=== PATIENT | female | born 1990 | race Caucasian/White ===

== ENCOUNTER 2016-10-11 20:16 | Emergency (ER) | payer SELFPAY ==
[2016-06-28 22:01] VITALS: BP 136/72
--- NOTE | 2016-10-11 20:30 | ED Physician Documentation ---
General Adult - HISTORIAN Historian: patient - HPI Stated Complaint: dental pain Chief Complaint: General Adult Onset: days ago (2) Timing: still present Severity: moderate Further Comments: yes (Pt is a 25 yo female with dental pain x 2 days. Pain is in the lower L rear molar. Pt has dentist appointment but it is not for several days. No fever, n/v.) - ROS CONST: no problems EYES/ENT: other (dental pain) CVS/RESP: none GI/: none MS/SKIN/LYMPH: none - PAST HX Past History: none Allergies/Adverse Reactions: Allergies Allergy/AdvReac Type Severity Reaction Status Date / Time No Known Allergies Allergy Verified 10/11/16 20:30 Home Medications: Ambulatory Orders Medication Instructions Recorded NK [NK] 06/28/16 - SOCIAL HX Smoking History: non-smoker - FAMILY HX Family History: No - VITAL SIGNS Vital Signs: Vital Signs Temp Pulse Resp BP Pulse Ox 136/72 06/28/16 22:17 - REVIEWED ASSESSMENTS Nursing Assessment Reviewed: Yes Vitals Reviewed: Yes Progress - Progress Progress: Rx Penicillin VK 500 mg. Take one tablet by mouth every 8 hrs for 10 days. Rx [place] (5/325). Take one or two tablets by mouth every 4 to 6 hrs as needed for moderate to severe pain. Follow up with dentist as soon as possible. General Adult Physical Exam - PHYSICAL EXAM GENERAL APPEARANCE: mild distress EENT: pharynx normal, other (dental pain with small gum abscess, L lower molar) NECK: normal inspection, supple RESPIRATORY: no resp distress CVS: reg rate & rhythm BACK: normal inspection SKIN: warm/dry, normal color EXTREMITIES: non-tender, normal range of motion NEURO: oriented X3 Discharge Clincal Impression: Pain, dental Referrals: Hugo Sheridan [Primary Care Provider] - Home Medications: Ambulatory Orders NK [NK] 06/28/16 Condition: Good Disposition: 01 HOME, SELF-CARE Decision to Admit: NO Decision Time: 20:33
== END 2016-10-11 20:36 | disposition home or self-care (01) ==
LOC: ED 20:16
DX: K02.9 Dental caries, unspecified (principal)
CPT/HCPCS: 99283

== ENCOUNTER 2016-10-23 02:24 | Emergency (ER) | payer SELFPAY ==
[2016-10-23] MEDS ORDERED: KETOROLAC TROMETHAMINE 60 MG/2 ML VIAL ONE (02:31)
[2016-10-23 02:40] VITALS: BP 151/80
[2016-10-23] MEDS ORDERED: KETOROLAC TROMETHAMINE 60 MG/2 ML VIAL IM ONE (02:40)
--- NOTE | 2016-10-23 02:56 | ED Physician Documentation ---
Sore Throat/Dental Pain - HISTORIAN Historian: patient - HPI Stated Complaint: dental pain Chief Complaint: Dental Pain Onset: days ago Further Comments: yes (25 year old female patient presents with complaints of dental pain. Patient was seen in ER on 10/11/2016 for dental pain, prescribed PenVK and [place]. Has not seen ER, does not have appointment until November 16.) - ROS CONST: no problems CVS/RESP: none GI/: denies: nausea, vomiting MS/SKIN/LYMPH: denies: muscle aches, rash, leg swelling, ankle swelling, other NEURO/PSYCH: none - PAST HX Past History: none Other History: none Allergies/Adverse Reactions: Allergies Allergy/AdvReac Type Severity Reaction Status Date / Time No Known Allergies Allergy Verified 10/23/16 02:36 Home Medications: Ambulatory Orders Medication Instructions Recorded NK [NK] 06/28/16 - SOCIAL HX Smoking History: non-smoker - FAMILY HX Family History: No - VITAL SIGNS Vital Signs: Vital Signs Temp Pulse Resp BP Pulse Ox 98.4 F 71 16 151/80 96 10/23/16 02:30 10/23/16 02:30 10/23/16 02:30 10/23/16 02:30 10/23/16 02:30 - REVIEWED ASSESSMENTS Nursing Assessment Reviewed: Yes Vitals Reviewed: Yes ED Results Lab/Radiology - Orders Orders: ED Orders Category Date Time Status Ketorolac Tromethamine [Toradol] Med 10/23/16 02:31 Discontinued 60 mg .ROUTE .STK-MED ONE Ketorolac Tromethamine [Toradol] Med 10/23/16 02:40 Discontinued 60 mg IM NOW ONE Dental Pain Physical Exam - EXAM General Appearance: mild distress Head/Neck: head nml inspection, neck nml inspection Eyes: PERRL Mouth/Throat: lips nml, gums nml, pharynx nml, voice nml, no drooling, no air way problems, no thrush, membranes nml, other (left bottom molar with no erythema, no edema, fillings noted, no fractured tooth present) Skin: normal color, warm/dry, NR, INT, PAL, DR Neuro/Psych: No: weakness Discharge Clincal Impression: Toothache Referrals: Hugo Sheridan [Primary Care Provider] - 2 Days Additional Instructions: See the dentist john Home Medications: Ambulatory Orders NK [NK] 06/28/16 Condition: Stable Disposition: 01 HOME, SELF-CARE Decision to Admit: NO Decision Time: 02:55
== END 2016-10-23 03:00 | disposition home or self-care (01) ==
LOC: ED 02:24
DX: K02.9 Dental caries, unspecified (principal)
CPT/HCPCS: J1885 ×2; 96372; 99283

== ENCOUNTER 2017-01-28 10:40 | Emergency (ER) | payer SELFPAY ==
--- NOTE | 2017-01-28 11:12 | ED Physician Documentation ---
Sore Throat/Dental Pain - HISTORIAN Historian: patient - HPI Stated Complaint: sore throat Chief Complaint: Sore Throat Additional Information: pt w/ sore throat has freq strept and son just got over strept throat. Onset: days ago (3) Associated Symptoms: sore throat, moderate Worsened By: heat, cold Further Comments: yes (has freq strept throats rel w/ amox and usually tests neg for strept) - ROS CONST: no problems CVS/RESP: none NEURO/PSYCH: none - PAST HX Past History: none Allergies/Adverse Reactions: Allergies Allergy/AdvReac Type Severity Reaction Status Date / Time No Known Allergies Allergy Verified 01/28/17 11:03 Home Medications: Ambulatory Orders Medication Instructions Recorded Amoxicillin [Trimox] 500 mg PO QID #40 capsule 01/28/17 - SOCIAL HX Smoking History: non-smoker Alcohol Use: rarely Drug Use: none - FAMILY HX Family History: No - VITAL SIGNS Vital Signs: Vital Signs Temp Pulse Resp BP Pulse Ox 151/80 10/23/16 03:00 - REVIEWED ASSESSMENTS Nursing Assessment Reviewed: Yes Vitals Reviewed: Yes Sore throat Physical Exam - EXAM General Appearance: moderate distress Head/Neck: head nml inspection, trachea midline, cervical lymphadenopathy, anterior. No: no lymphadenopathy Eyes: eyes nml inspection Mouth/Throat: lips nml, gums nml, pharyngeal erythema, tonsillar exudate, tonsillar swelling Ear/Nose: nml inspection Respiratory: no resp. distress, breath sounds nml CVS: reg. rate & rhythm, heart sounds nml Abdomen: soft, non-tender Extremities: non-tender, nml ROM Skin: warm/dry, normal color. No: cyanosis, diaphoresis, jaundice Neuro/Psych: oriented x3 Discharge Clincal Impression: strept throat Prescriptions: Amoxicillin [Trimox] 500 mg PO QID #40 capsule Referrals: Hugo Sheridan [Primary Care Provider] - 2 Days Home Medications: Ambulatory Orders Amoxicillin [Trimox] 500 mg PO QID #40 capsule 01/28/17 Condition: Good Disposition: 01 HOME, SELF-CARE Decision to Admit: NO Decision Time: 11:14
[2017-01-28 11:23] VITALS: BP 144/70
== END 2017-01-28 11:23 | disposition home or self-care (01) ==
LOC: ED 10:40
DX: J02.0 Streptococcal pharyngitis (principal)
CPT/HCPCS: 87070; 87880; 99283

== ENCOUNTER 2017-03-16 04:23 | Emergency (ER) | payer SELFPAY ==
--- NOTE | 2017-03-16 05:10 | ED Physician Documentation ---
Psychological Disorders - HISTORIAN Historian: patient - HPI Stated Complaint: SHAKEY/ANXIOUS Chief Complaint: Psychological Disorder Additional Information: She says when she "gets around people, she feels all shakey, and like she can't breath, and like she has to go outside to get away from people" started today. Onset: hours Duration: sudden onset Intent: denies: suicide, wants to escape, accidental Severity: mild Situational Problems: No Related To: work Further Comments: no - Associated Symptoms Symptoms: other (anxious) - ROS CONST: none NEURO/PSYCH: none. denies: headache EYES/ENT: none. denies: problems with vision CVS/RESP: none. denies: chest pain GI/: denies: nausea, vomiting MS/SKIN/LYMPH: denies: joint pain - PAST HX Psychiatric problems: denies: bipolar disorder DVT/PE Risk Factors: none Lung, Cardiac, DM: denies: A-Fib, diabetes Type 2 Surgical History: no surgical history Immunizations: UTD Allergies/Adverse Reactions: Allergies Allergy/AdvReac Type Severity Reaction Status Date / Time No Known Allergies Allergy Verified 01/28/17 11:03 Home Medications: Ambulatory Orders Medication Instructions Recorded NK [NK] 03/16/17 - Social HX Smoking History: non-smoker Marital Status: single Drug Use: none - Family HX Family HX: denies: mental illness - VITAL SIGNS Vital Signs: Vital Signs Temp Pulse Resp BP Pulse Ox 98.4 F 91 H 18 147/80 98 03/16/17 04:24 03/16/17 04:24 03/16/17 04:24 03/16/17 04:24 03/16/17 04:24 - REVIEWED ASSESSMENTS Nursing Assessment Reviewed: Yes Vitals Reviewed: Yes Psych Physical Exam - Physical Exam General Appearance: mild distress, anxious, other (tearful) ENT: nml ENT inspection, pharynx nml Eyes: EOM's intact Mental Status: tearful Orientation: nml x3 Cranial Nerves: CN's intact as tested Sensory, Motor: nml motor response, nml sensory response Neck/Back: normal inspection, supple. No: carotid bruit Respiratory: no resp distress, breath sounds normal CVS: reg rate & rhythm, heart sounds normal, equal pulses Abdomen: non-tender Skin: warm/dry, normal color Extremities: non-tender, normal range of motion, no evidence of injury Discharge Clincal Impression: Anxiety attack, Panic attack as reaction to stress Referrals: Hugo Sheridan [Primary Care Provider] - 2 Days Condition: Stable Disposition: 01 HOME, SELF-CARE Decision to Admit: NO Date of Decison to Admit: 03/16/17 Decision Time: 05:13
[2017-03-16 05:29] VITALS: BP 144/82
== END 2017-03-16 05:15 | disposition home or self-care (01) ==
LOC: ED 04:23
DX: F41.0 Panic disorder [episodic paroxysmal anxiety] (principal); F43.0 Acute stress reaction
CPT/HCPCS: 99283

== ENCOUNTER 2017-05-05 12:06 | Emergency (ER) | payer OTHER ==
[2017-05-05 12:21] VITALS: BP 128/85
--- NOTE | 2017-05-05 12:49 | ED Physician Documentation ---
Upper Respiratory Symptoms - HISTORIAN Historian: patient - HPI Stated Complaint: cough, congestion Chief Complaint: Cough/ Upper Respiratory Additional Information: cough congestion nasal stuffiness onset 2 d ago-cough occ prod greenish mucoid Duration: intermittent episodes Context: other (son had similar but lesser). denies: recent foreign travel Severity: moderate Associated Symptoms: chills, runny nose, productive cough. denies: fever, sinus pain, sore throat, hoarseness, allergy, headache Worsened by Deep Breath: Yes - ROS CONST/EYES: weakness (sl;ight-more lethargy) CVS/RESP: denies: chest pain, shortness of breath, palpitations LYMPH: denies: leg swelling, rash, swollen glands, ankle swelling GI/: none - PAST HX Lung Disease: none Surgeries/Procedures: none (ear tubes as young child) Immunizations: denies: influenza Allergies/Adverse Reactions: Allergies Allergy/AdvReac Type Severity Reaction Status Date / Time No Known Allergies Allergy Verified 05/05/17 12:21 Home Medications: Ambulatory Orders Medication Instructions Recorded NK [NK] 03/16/17 - SOCIAL HX Smoking History: other (occc 1-2 cigs most days= no) Alcohol Use: none Drug Use: none - FAMILY HX Family History: no significant history - VITAL SIGNS Vital Signs: Vital Signs Temp Pulse Resp BP Pulse Ox 97.7 F 85 20 128/85 99 05/05/17 12:16 05/05/17 12:16 05/05/17 12:16 05/05/17 12:16 05/05/17 12:16 - REVIEWED ASSESSMENTS Nursing Assessment Reviewed: Yes Vitals Reviewed: Yes Upper Respiratory Symptoms - EXAM General Appearance: moderate distress EENT: eyes nml inspection Neck: supple. No: normal inspection (boggy erythema) Respiratory: no resp. distress, breath sounds nml Abdomen: non-tender CVS: reg rate & rhythm, heart sounds normal Skin: color nml, no rash, warm,dry. No: cyanosis, diaphoresis, pallor Extremities: non-tender, normal range of motion Neuro/Psych: oriented x3, mood/affect nml Discharge Clincal Impression: viral resp illness Referrals: Hugo Sheridan [Primary Care Provider] - 2 Days Comments: home rest tessalon bal nut vits claritin-no work for 1-2 days. 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
== END 2017-05-05 12:50 | disposition home or self-care (01) ==
LOC: ED 12:06
DX: J98.8 Other specified respiratory disorders (principal)
CPT/HCPCS: 99283

== ENCOUNTER 2017-12-30 12:29 | Emergency (ER) | payer SELFPAY ==
--- NOTE | 2017-12-30 13:21 | ED Physician Documentation ---
General Adult - HISTORIAN Historian: patient - HPI Stated Complaint: sore throat Chief Complaint: General Adult Onset: hours Timing: still present Severity: moderate Further Comments: yes (Pt is a 27 yo female with a sore throat since yesterday. Pt has difficulty swallowing. No fever, n/v.) - ROS CONST: no problems EYES/ENT: sore throat, other (tonsillar swelling) CVS/RESP: none GI/: none MS/SKIN/LYMPH: none - PAST HX Past History: none Allergies/Adverse Reactions: Allergies Allergy/AdvReac Type Severity Reaction Status Date / Time No Known Allergies Allergy Verified 12/30/17 12:45 Home Medications: Ambulatory Orders Medication Instructions Recorded NK [NK] 03/16/17 - SOCIAL HX Smoking History: less than 1 pack/day - FAMILY HX Family History: No - VITAL SIGNS Vital Signs: Vital Signs Temp Pulse Resp BP Pulse Ox 98.4 F 88 20 129/94 12/30/17 12:40 12/30/17 12:40 12/30/17 12:40 12/30/17 12:40 - REVIEWED ASSESSMENTS Nursing Assessment Reviewed: Yes Vitals Reviewed: Yes Progress - Progress Progress: Rocephin 1 gm IM in ER Rx Z-lauro. Take as directed on package. Rx Prednisone 50 mg. Take one daily for 5 days. Rapid strep neg. Throat cx pending. ED Results Lab/Radiology - Orders Orders: ED Orders Category Date Time Status THROAT CULTURE Stat Lab 12/30/17 Ordered cefTRIAXone SODIUM [Rocephin] Med 12/30/17 14:00 Ordered 1 gm IM QD General Adult Physical Exam - PHYSICAL EXAM GENERAL APPEARANCE: mild distress EENT: pharyngeal erythema (tonsillar swelling) NECK: lymphadenopathy RESPIRATORY: no resp distress, chest non-tender, breath sounds normal CVS: reg rate & rhythm, heart sounds normal BACK: normal inspection SKIN: warm/dry, normal color EXTREMITIES: non-tender, normal range of motion, no evidence of injury, no edema NEURO: oriented X3, motor nml, sensation nml Discharge Clincal Impression: Pharyngitis Qualifiers: Pharyngitis/tonsillitis etiology: unspecified etiology Qualified Code(s): J02.9 - Acute pharyngitis, unspecified Referrals: Hugo Sheridan [Primary Care Provider] - Condition: Good Disposition: 01 HOME, SELF-CARE Decision to Admit: NO Decision Time: 13:45
[2017-12-30] MEDS ORDERED: cefTRIAXone SODIUM 1 GM VIAL ONE (13:33)
[2017-12-30 13:52] VITALS: BP 137/80
[2017-12-30] MEDS ORDERED: cefTRIAXone SODIUM 1 GM VIAL IM SCH (14:00)
== END 2017-12-30 13:43 | disposition home or self-care (01) ==
LOC: ED 12:29
DX: J02.9 Acute pharyngitis, unspecified (principal)
CPT/HCPCS: 87070; 87880; J0696; 96372; 99283

== ENCOUNTER 2018-02-25 09:34 | Emergency (ER) | payer SELFPAY ==
[2018-02-25 09:50] VITALS: BP 127/87
--- NOTE | 2018-02-25 09:58 | ED Physician Documentation ---
General Adult - HISTORIAN Historian: patient - HPI Stated Complaint: cough, congestion Chief Complaint: General Adult Onset: days ago (1) Timing: still present Severity: moderate Further Comments: yes (Pt is a 27 yo female with cough/wheezing x 2 days. No previous hx asthma. No fever, n/v. Pt's 7 yo son is also ill.) - ROS CONST: no problems EYES/ENT: none CVS/RESP: cough (wheezing) GI/: none MS/SKIN/LYMPH: none - PAST HX Past History: none Allergies/Adverse Reactions: Allergies Allergy/AdvReac Type Severity Reaction Status Date / Time No Known Allergies Allergy Verified 02/25/18 09:51 Home Medications: Ambulatory Orders Medication Instructions Recorded NK 03/16/17 - SOCIAL HX Smoking History: cigarettes - FAMILY HX Family History: No - VITAL SIGNS Vital Signs: Vital Signs Temp Pulse Resp BP Pulse Ox 97.5 F L 98 H 22 127/87 93 02/25/18 09:47 02/25/18 09:47 02/25/18 09:47 02/25/18 09:47 02/25/18 09:47 - REVIEWED ASSESSMENTS Nursing Assessment Reviewed: Yes Vitals Reviewed: Yes Progress - Progress Progress: Duoneb HFN in ER. Rx Z-lauro. Use as directed. Rx Albuterol (90 mcg/spray). 2 puffs q 4-6 hrs prn. - EKG/XRAY/CT XRAY: chest (NO ACTIVE DISEASE.) General Adult Physical Exam - PHYSICAL EXAM GENERAL APPEARANCE: mild distress EENT: ENT inspection normal, pharynx normal NECK: normal inspection, supple RESPIRATORY: wheezes CVS: reg rate & rhythm, heart sounds normal BACK: normal inspection, no CVA tenderness SKIN: warm/dry, normal color EXTREMITIES: non-tender, normal range of motion, no evidence of injury, no edema NEURO: oriented X3, motor nml, sensation nml Discharge Clincal Impression: cough, wheezing Referrals: Hugo Sheridan [Primary Care Provider] - Condition: Stable Disposition: 01 HOME, SELF-CARE Decision to Admit: NO Decision Time: 11:11
[2018-02-25] MEDS ORDERED: IPRATROPIUM/ALBUTEROL SULFATE 3 ML AMPUL.NEB NEB ONE (10:06)
--- NOTE | 2018-02-25 11:30 | Diagnostic Imaging Report ---
ROZ BLAIR [facility] [address] [facility] [address] [place] [id number] Report Submission Date: Feb 25, 2018 10:48:16 AM CDT Patient Study Name: FREDDY ELLIS Date: Feb 25, 2018 10:20:48 AM CDT Modality Type: DX Gender: F Description: CHEST : 89 Institution: [facility] Physician: ROZ BLAIR PA AND LATERAL CHEST HISTORY: Cough COMPARISON: None PA and Lateral Chest dated February 25, 2018 demonstrates a normal cardiomediastinal silhouette. Pulmonary vascularity is normal. Lungs are clear. IMPRESSION: NO ACTIVE DISEASE. Electronically signed on Feb 25, 2018 10:48:16 AM CDT by: Bailey PERAZA
== END 2018-02-25 11:13 | disposition home or self-care (01) ==
LOC: ED 09:34
DX: R05 Cough (principal); R06.2 Wheezing
CPT/HCPCS: 71046; 94640; 99283

== ENCOUNTER 2018-04-15 11:20 | Emergency (ER) | payer SELFPAY ==
--- NOTE | 2018-04-15 11:26 | ED Physician Documentation ---
Sore Throat/Dental Pain - HISTORIAN Historian: patient - HPI Stated Complaint: sore throat, eye complaint, ear pain Chief Complaint: Sore Throat Onset: days ago (2) Context: Possible Infection Associated Symptoms: sore throat, moderate, L ear pain, cough, other (eye matting and itching ). denies: fever, chills Worsened By: nothing Further Comments: yes (she reports her son was sick with what she believed to be a cold a few days ago. She has started two days ago with sore throat, ear pain and eye matting and discharge. No fever that she is aware of at this time. She has not taken any OTC meds at this time) - ROS CONST: eye redness, eye itching CVS/RESP: denies: shortness of breath GI/: denies: nausea, vomiting NEURO/PSYCH: headache (sinus ) - PAST HX Past History: none Other History: none Immunizations: UTD Allergies/Adverse Reactions: Allergies Allergy/AdvReac Type Severity Reaction Status Date / Time No Known Allergies Allergy Verified 04/15/18 11:37 Home Medications: Ambulatory Orders Medication Instructions Recorded NK 03/16/17 - SOCIAL HX Smoking History: cigarettes Alcohol Use: none Drug Use: none - FAMILY HX Family History: No - VITAL SIGNS Vital Signs: Vital Signs Temp Pulse Resp BP Pulse Ox 97.9 F 77 19 150/76 97 04/15/18 11:56 04/15/18 11:56 04/15/18 11:56 04/15/18 11:56 04/15/18 11:56 - REVIEWED ASSESSMENTS Nursing Assessment Reviewed: Yes Vitals Reviewed: Yes ED Results Lab/Radiology - Orders Orders: ED Orders Category Date Time Status GRP A STREP SCREEN Stat Lab 04/15/18 Ordered Sore throat Physical Exam - EXAM General Appearance: no acute distress, alert Head/Neck: head nml inspection, pain over sinuses (left frontal and maxillary ), maxillary swelling (L) Eyes: conjunctivae red Mouth/Throat: lips nml, gums nml, no drooling, no air way problems, pharyngeal erythema, tonsillar swelling Ear/Nose: nml inspection, TM erythema (left ear ) Respiratory: no resp. distress, breath sounds nml, respiratory distress CVS: reg. rate & rhythm, heart sounds nml Abdomen: soft, no distension Extremities: non-tender Skin: warm/dry, normal color Neuro/Psych: oriented x3, mood/affect nml Discharge Clincal Impression: Strep throat Referrals: Hugo Sheridan [Primary Care Provider] - 2 Days Additional Instructions: 1. Amoxicillin 500 mg take 1 by mouth three times per day 2. Warm tea with honey 3. Increase fluids 4. Tylenol or Ibuprofen as directed for pain or fever 5. Gentamycin use 1 drop in affected eye three times per day 6. See PCP in 2-4 days 7. Return to ER for concerns Condition: Stable Disposition: 01 HOME, SELF-CARE Decision to Admit: NO Date of Decison to Admit: 04/15/18 Decision Time: 11:48
[2018-04-15 11:41] VITALS: BP 150/76
== END 2018-04-15 11:56 | disposition home or self-care (01) ==
LOC: ED 11:20
DX: J02.9 Acute pharyngitis, unspecified (principal)
CPT/HCPCS: 87880; 99283

== ENCOUNTER 2019-03-23 18:12 | Emergency (ER) | payer SELFPAY ==
--- NOTE | 2019-03-23 18:32 | ED Physician Documentation ---
Abscess - HISTORIAN Historian: patient - HPI Chief Complaint: Abscess (Bumps under Left Axillary) Additional Information: Patient is a 28 year old female who presents to the ER with c/o small bumps under the left axilla x 1 month. Possibly due to shaving- several areas that are small, red, erythemic- no head noted. Patient denies any fever or chills. Onset: days ago (1 month) Timing: still present Duration: persistent since Location: L axillary Quality: painful Identified Cause?: No (Possibly d/t shaving) When Did Symptoms Start: 02/21/19 Where: home Context: Medication Exposure: none Context: Food Exposure: none Context: Other Exposure: other (ingrown hair) - ROS CONST: none CVS/RESP: none EYES/ENT: none GI/: none MS/SKIN/LYMPH: none NEURO/PSYCH: none - PAST HX Past History: none Other History: none Surgeries/Procedures: No Immunizations: UTD Allergies/Adverse Reactions: Allergies Allergy/AdvReac Type Severity Reaction Status Date / Time No Known Allergies Allergy Verified 03/23/19 18:25 Home Medications: Ambulatory Orders Medication Instructions Recorded NK 03/23/19 - SOCIAL HX Smoking History: cigarettes, less than 1 pack/day Alcohol Use: rarely Drug Use: none - FAMILY HX Family History: none - VITAL SIGNS Vital Signs: Vital Signs Temp Pulse Resp BP Pulse Ox 145/88 01/07/19 12:40 - REVIEWED ASSESSMENTS Nursing Assessment Reviewed: Yes Vitals Reviewed: Yes ED Results Lab/Radiology - Orders Orders: ED Orders Category Date Time Status Sulfamethoxazole/Trimethoprim [Bactrim Ds] Med 03/23/19 18:28 Once 1 each PO NOW ONE Abscess Physical Exam - EXAM General Appearance: no acute distress, alert Skin: warm,dry, other (redness/erythema-barely raised; possibly due from shaving) Location: extremities Character: erythematous Symptoms: warmth, tenderness, swelling (mild swelling) Extremities: nml ROM EENT: eyes nml inspection, pharynx nml Respiratory: breath sounds normal CVS: heart sounds nml Neuro/Psych: oriented x3, CN's nml as tested, motor nml, sensation nml, mood/affect nml Discharge Clincal Impression: Folliculitis Referrals: Primary Doctor,No [Primary Care Provider] - 2 Days Additional Instructions: Take Bactrim twice a day for 10 days No shaving (wax or use hair remover) Use warm moist heat Alternate Tylenol and Ibuprofen as needed for discomfort Follow up with PCP in 1-2 weeks for re-evaluation Condition: Good Disposition: 01 HOME, SELF-CARE Decision to Admit: NO Decision Time: 18:32
[2019-03-23 18:34] VITALS: BP 140/75
[2019-03-23] MEDS: SULFAMETHOXAZOLE/TRIMETHOPRIM 800/160MG TAB PO ONE (18:34)
== END 2019-03-23 18:37 | disposition home or self-care (01) ==
LOC: ED 18:12
DX: L66.2 Folliculitis decalvans (principal)
CPT/HCPCS: 99283; 99284; A9270

== ENCOUNTER 2019-03-30 20:02 | Emergency (ER) | payer SELFPAY ==
--- NOTE | 2019-03-30 20:38 | ED Physician Documentation ---
General Adult - HISTORIAN Historian: patient - HPI Stated Complaint: pain under left arm Chief Complaint: General Adult Additional Information: Patient presents to ED with pain under left arm. Patient was seen a week ago for folliculitis left axilla. Patient was given Bactrim, however, she states it is causing nausea and she cannot tolerate it so she has not been taking it. Onset: days ago (7) Timing: still present Severity: mild - ROS CONST: no problems EYES/ENT: none CVS/RESP: none GI/: nausea MS/SKIN/LYMPH: none NEURO/PSYCH: denies: headache - PAST HX Past History: none Other History: none Allergies/Adverse Reactions: Allergies Allergy/AdvReac Type Severity Reaction Status Date / Time No Known Allergies Allergy Verified 03/30/19 21:20 Home Medications: Ambulatory Orders Medication Instructions Recorded Sulfamethoxazole/Trimethoprim 1 each PO BID #20 tab 03/23/19 [Bactrim Ds] Cephalexin [Keflex] 500 mg PO Q8 #30 capsule 03/30/19 Ondansetron HCl Rapdis [Zofran Odt] 4 mg PO Q8 PRN #30 tab 03/30/19 - SOCIAL HX Smoking History: non-smoker Alcohol Use: none Drug Use: none - FAMILY HX Family History: No - VITAL SIGNS Vital Signs: Vital Signs Temp Pulse Resp BP Pulse Ox 97.9 F 89 18 125/88 95 03/30/19 20:02 03/30/19 20:02 03/30/19 20:02 03/30/19 20:02 03/30/19 20:02 - REVIEWED ASSESSMENTS Nursing Assessment Reviewed: Yes Vitals Reviewed: Yes General Adult Physical Exam - PHYSICAL EXAM GENERAL APPEARANCE: no distress EENT: CONNIE NECK: normal inspection, supple RESPIRATORY: no resp distress, chest non-tender, breath sounds normal CVS: reg rate & rhythm, heart sounds normal ABDOMEN: soft, normal bowel sounds, non-tender BACK: normal inspection SKIN: warm/dry, other (left axilla with indurated 2 cm area, tender) EXTREMITIES: non-tender NEURO: oriented X3, mood/affect nml Discharge Clincal Impression: Folliculitis Prescriptions: Cephalexin [Keflex] 500 mg PO Q8 #30 capsule Ondansetron HCl Rapdis [Zofran Odt] 4 mg PO Q8 PRN #30 tab PRN Reason: nausea/vomiting Referrals: Primary Doctor,No [Primary Care Provider] - 2 Days Additional Instructions: 1. Stop taking Bactrim 2. Start Keflex tomorrow evening 3. Take Zofran every 8 hours as needed for nausea 4. Applying Tea tree oil to affected areas every day may be beneficial to prevent future issues 5. Apply Prid or Black and White ointment to affected area every 8 hours until resolution. This is found over the counter at the pharmacy. A pharmacist can help you find it. 6. Follow up with PCP within 1 week 7. Return to ER for new or worsening symptoms Condition: Stable Disposition: 01 HOME, SELF-CARE Decision to Admit: NO Date of Decison to Admit: 03/30/19 Decision Time: 20:45
[2019-03-30] MEDS: Lidocaine 1% 5ml 10 MG/ML VIAL IJ ONE (20:40)
[2019-03-30] MEDS: cefTRIAXone SODIUM 1 GM in Lidocaine 1% 5ml 2.1 ML IM ONE (20:40)
[2019-03-30 21:19] VITALS: BP 132/88
== END 2019-03-30 21:19 | disposition home or self-care (01) ==
LOC: ED 20:02
DX: L73.9 Follicular disorder, unspecified (principal)
CPT/HCPCS: 96372; 99283; 99284; J0696